=== PATIENT | male | born 1945 | race Caucasian/White ===

== ENCOUNTER 2019-08-21 14:38 | Emergency (ER) | payer BC, SELFPAY ==
[2019-08-21 14:39] VITALS: BP 111/73; PULSE 62; RESP 20; TEMP 36.4; O2SAT 99; BMI 24.9
--- NOTE | 2019-08-21 15:11 | RAD_ITS ---
STUDY: X-RAY - PELVIS REASON FOR EXAM: Male, 73 years old. fall, right hip pain TECHNIQUE: One view of the pelvis was obtained. COMPARISON: None. FINDINGS: There is a non-specific bowel gas pattern. Normal visualized soft tissue structures. Normal bilateral iliac wings, sacroiliac joints and visualized sacrum. Normal visualized bilateral superior pubic rami. There is deformity of the right inferior pubis possibly due to rotation. AP view of the pelvis would be helpful for further evaluation. Normal pubic symphysis. Normal ischial tuberosities. Acute impacted comminuted intertrochanteric fracture with overlapping and varus angulation of fracture fragments. Normal visualized left femoral head. Normal left acetabulum. Normal left hip joint. RAD/Pelvis 1 or 2 Views IMPRESSION: Acute impacted comminuted intertrochanteric fracture of the right hip with varus angulation. Deformity of the right inferior pubis most likely artifactual however this may be better assessed with AP view if clinically warranted Electronically Signed: Morgan Durham MD at 16:34 EDT , Service support ,
[2019-08-21] MEDS: Morphine 4 MG/ML Syringe IV (15:21)
--- NOTE | 2019-08-21 15:45 | RAD_ITS ---
STUDY: X-RAY - RIGHT FEMUR REASON FOR STUDY: Male, 73 years old. fall, right hip pain TECHNIQUE: 5 view(s) of the femur. COMPARISON: None. FINDINGS: Acute impacted comminuted intertrochanteric fracture with overlapping and varus angulation of fracture fragments.. The remainder of the femur is intact RAD/Femur Min 2 Views IMPRESSION: Acute intertrochanteric fracture of the right kidney Electronically Signed: Morgan Durham MD at 16:35 EDT , Service support ,
--- NOTE | 2019-08-21 15:47 | RAD_ITS ---
STUDY: X-RAY CHEST REASON FOR EXAM: Male, 73 years old. fall, right hip fracture TECHNIQUE: AP portable COMPARISON: None. FINDINGS: Lungs are hyperinflated but clear of acute infiltration. Small nodular opacity projecting over the right lower lobe probably representing nipple shadow. There is no demonstrated pleural abnormality. Normal size heart. Normal mediastinum and odilon. Normal visualized pulmonary arteries. Normal visualized aortic arch and descending thoracic aorta. Dorsal spine demonstrates degenerative change Normal visualized ribs, clavicles, and shoulders. There is no demonstrated abnormality of the visualized soft tissue structures of the upper abdomen. RAD/Chest 1 View (Portable) IMPRESSION: COPD. No acute disease Probable nipple shadow projecting over the right lung base. Lateral view or repeat film with nipple markers would be useful for further evaluation if indicated Electronically Signed: Morgan Durham MD at 16:32 EDT , Service support ,
[2019-08-21] MEDS: HYDROmorphone 1 MG/ML Syringe IV ×2 (16:22→18:42)
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
[2019-08-21 18:04] VITALS: BP 126/80; PULSE 57; RESP 16; O2SAT 97
[2019-08-21 19:05] VITALS: BP 126/80; PULSE 57; RESP 16; O2SAT 97
== END 2019-08-21 19:45 | disposition short-term general hospital (02) ==
PROVIDERS: Emergency Provider Emergency Medicine
DX: S72.141A Displaced intertrochanteric fracture of right femur, initial encounter for closed fracture (principal); F32.9 Major depressive disorder, single episode, unspecified; Z79.899 Other long term (current) drug therapy; Z87.891 Personal history of nicotine dependence; X50.1XXA Overexertion from prolonged static or awkward postures, initial encounter; Y93.89 Activity, other specified; Y92.524 Gas station as the place of occurrence of the external cause; Y99.8 Other external cause status
CPT/HCPCS: 71045; 72170; 73552; 96374; 96375; 96376; 99285; A4216